=== PATIENT | male | born 2000 | race Caucasian/White ===

== ENCOUNTER 2020-02-06 16:29 | Emergency (ER) | payer MEDICAID, SELFPAY ==
[2020-02-06 16:36] VITALS: BP 147/74; PULSE 110; RESP 16; TEMP 36.6; O2SAT 100
--- NOTE | 2020-02-06 17:05 | ED.DENTAL ---
HPI - Dental/Oral General Chief complaint: Dental/Oral Stated complaint: dental pain, face swollen Time Seen by Provider: 02/06/20 16:44 Source: patient Mode of arrival: ambulatory Limitations: no limitations History of Present Illness HPI Narrative: This is a 19-year-old male that presents the emergency department for toothache x3 days. Reports he thinks he has a wisdom tooth coming in. Reports swelling to the area and pain. Reports he does not currently have a dentist. Denies fever, dysphagia, or dyspnea. MD Complaint: tooth pain Location: Tooth # (32) Related Data Allergies Allergy/AdvReac Type Severity Reaction Status Date / Time No Known Allergies Allergy Verified 02/06/20 17:11 Review of Systems Review of Systems: Narrative: CONSTITUTIONAL: Denies fever ENT: Reports dentalgia All systems reviewed & are unremarkable except as noted in HPI and below PMFSH Past Medical History Medical History (Updated 02/06/20 @ 17:10 by María Lund PA-C) No active medical problems Social History Social History (Updated 02/06/20 @ 17:06 by María Lund PA-C) Smoking status: Current every day smoker Exam Narrative: Exam Narrative: GENERAL: Well-appearing, well-nourished, and in no acute distress. HEAD: Normocephalic, atraumatic. EYES: EOMI. ENT: Mucous membranes moist. Oropharynx without tonsillar hypertrophy exudate or other lesions. Tooth #32 is erupting with mild surrounding edema, no erythema or fluctuance to suggest abscess NECK: Supple. No adenopathy or masses. CHEST: Airway patent EXTREMITIES: Normal range of motion. No edema. SKIN: Warm, dry, no rash. NEURO: No focal deficits. Alert and oriented x3. PSYCH: Normal mood and affect Course Vital Signs Vital signs: Vital Signs Temperature 97.8 F 02/06/20 16:36 Pulse Rate 110 H 02/06/20 16:36 Respiratory Rate 16 02/06/20 16:36 Blood Pressure 147/74 H 02/06/20 16:36 Pulse Oximetry 100 02/06/20 16:36 Temperature 97.8 F 02/06/20 16:36 Pulse Rate 110 H 02/06/20 16:36 Respiratory Rate 16 02/06/20 16:36 Blood Pressure 147/74 H 02/06/20 16:36 Pulse Oximetry 100 11/18/20 16:36 MDM - Dental/Oral MDM Narrative Medical decision making narrative: Patient presents to the emergency department for toothache x3 days. He is afebrile and nontoxic-appearing. Tooth #32 is erupting with mild surrounding swelling. No erythema or fluctuance to suggest abscess. Patient will be started on oral antibiotics and was instructed to follow-up with the dentist. He was given warnings to return to the ER Critical Care Time Critical Care Time Critical Care Time: No Discharge Plan Discharge Clinical Impression: Toothache Patient Disposition: Home, Self-Care Condition: Stable Instructions: Antibiotic Form, Toothache (ED) Additional Instructions: Return to the Emergency Department if you experience fever >101, increasing swelling and redness of your tooth, or any other symptoms that are concerning to you Take antibiotic as prescribed. Tylenol or Ibuprofen as needed for pain. You can apply a dab of clove oil to a Qtip and apply to the tooth to help numb the area Follow up with a dentist. Dr. Jesus Bush at [facility] Prescriptions: New amoxicillin-pot clavulanate [Augmentin] 875-125 mg tablet 1 tablet PO Q12H 7 Days Qty: 14 RF: 0 Follow-up/Referrals: PHYSICIAN,WATER HAULER [Primary Care Provider] -
[2020-02-06 17:33] VITALS: BP 138/80; PULSE 98; RESP 17; O2SAT 98
== END 2020-02-06 17:35 | disposition home or self-care (01) ==
PROVIDERS: Emergency Provider Emergency Medicine
DX: K08.89 Other specified disorders of teeth and supporting structures (principal)
CPT/HCPCS: 99283

== ENCOUNTER 2020-06-13 17:27 | Emergency (ER) | payer OTHER, SELFPAY ==
--- NOTE | ~2020-06-13 | CT_ITS ---
EXAMINATION: CT abdomen pelvis w con EXAM DATE: 06/13/2020 18:27 INDICATION: Right lower quadrant pain. TECHNIQUE: Spiral CT of the abdomen and pelvis was performed following intravenous injection of 100 m L Omnipaque 350. Axial, coronal and sagittal images were reviewed. The dose-length product (DLP) fo r this examination was 862.04 mGy-cm. The exposure was tailored according to patient size (auto mA e xposure control), and iterative reconstruction (ASIR) was used as additional dose reduction technique . There is no prior study for comparison. FINDINGS: The liver, spleen, adrenal glands and pancreas are unremarkable. Gallbladder is unremarkab le. No biliary obstruction. Portal and splenic veins are patent. Kidneys enhance symmetrically. T here is no hydronephrosis. The prostate is unremarkable. The bladder is unremarkable. There is no retroperitoneal or pelvic lymphadenopathy. Small umbilical fat-containing hernia. 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 There are several pericecal lymph node s measuring up to about 1 cm in size, could be mesenteric adenitis. The stomach and small bowel are unremarkable. There is expected amount of colonic stool. No free intraperitoneal gas. The heart is normal in size. There are no pericardial or pleural effusions. The lung bases are unremarkable. There is bilateral L5 spondylolysis with some reparative response, appears subacute. No spondylolisth esis. There is L2 limbus vertebral body. There are no osteoblastic or osteolytic lesions identified. IMPRESSION: 1. Possible mesenteric adenitis. 2. Congenitally large but otherwise unremarkable appendix. 3. 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 Reviewed, dictated and finalized at location A.
[2020-06-13 17:30] VITALS: BP 165/88; PULSE 109; RESP 16; O2SAT 100
--- NOTE | 2020-06-13 17:40 | ED.GENADULT ---
HPI - General Adult General Chief complaint: Nausea/Vomiting/Diarrhea <Yon Gabriel DO - Last Filed: 06/13/20 18:58> Stated complaint: n/v/d <Yon Gabriel DO - Last Filed: 06/13/20 18:58> Time Seen by Provider: 06/13/20 17:29 <Yon Gabriel DO - Last Filed: 06/13/20 18:58> History of Present Illness HPI narrative: Patient presents emergency room from home for nausea vomiting diarrhea. Patient states began 2 days ago with numerous episodes of nausea vomiting diarrhea states associated with right-sided abdominal pain described as aching denies any fevers or chills chest pain shortness breath any other symptoms states he took no pain medication today <Yon Gabriel DO - Last Filed: 06/13/20 18:58> Related Data Home medications: Home Medications Medication Instructions Recorded Confirmed albuterol mcg INHALATION 06/13/20 <Yon Gabriel DO - Last Filed: 06/13/20 18:58> Allergies/adverse reactions: Allergies Allergy/AdvReac Type Severity Reaction Status Date / Time No Known Allergies Allergy Verified 06/13/20 17:33 <Yon Gabriel DO - Last Filed: 06/13/20 18:58> Review of Systems Review of Systems: Narrative: Gen.: Denies fevers or chills ENT: Denies congestion Respiratory: Denies shortness of breath or cough CV: Denies chest pain or palpitations GI: See HPI denies burning, urgency, frequency or hematuria Musculoskeletal: Denies back pain or muscle pain Neuro: Denies numbness, tingling, weakness or focal weakness Skin: Denies rash Except as documented, all other systems reviewed and negative <DO Lacho Kaufman Last Filed: 06/13/20 18:58> PMFSH Past Medical History Medical History: Medical History No active medical problems <Yon Gabriel DO - Last Filed: 06/13/20 18:58> Social History Social History: Social History Smoking status: Current every day smoker <Yon Gabriel DO - Last Filed: 06/13/20 18:58> Exam Narrative: Exam Narrative: APPEARANCE: No acute distress, nontoxic, resting in bed HEENT: Normocephalic, atraumatic, OMM RESPIRATORY: No respiratory distress, clear to auscultation bilaterally with no rhonchi wheezing or rales CARDIOVASCULAR: RRR s murmur ABDOMINAL: Soft nondistended tender palpation right upper quadrant right lower quadrant no tenderness lateral quadrant left lower quadrant no rebound or guarding MUSCULOSKELETAl: Moves all extremities. No clubbing, cyanosis or edema. NEURO: Awake and alert. Following commands, speech normal, no focal deficits SKIN:: Warm, dry. Normal Color PSYCHIATRIC: Normal affect/mood <DO Lacho Kaufman Last Filed: 06/13/20 18:58> Course Course Emergency Course: Patient still noting nausea will give additional medication at this time Care turned over Dr. Parada at shift change awaiting reevaluation and disposition <DO Lacho Kaufman Last Filed: 06/13/20 18:58> Vital Signs Vital signs: Vital Signs Pulse Rate 109 H 06/13/20 17:30 Respiratory Rate 16 06/13/20 17:30 Blood Pressure 165/88 H 06/13/20 17:30 Pulse Oximetry 100 06/13/20 17:30 Temperature 37.0 C 06/13/20 18:04 Pulse Rate 61 06/13/20 20:21 Respiratory Rate 18 06/13/20 20:21 Blood Pressure 119/61 06/13/20 20:21 Pulse Oximetry 99 06/13/20 20:21 <DO Lacho Kaufman Last Filed: 06/13/20 18:58> Vital Signs Pulse Rate 109 H 06/13/20 17:30 Respiratory Rate 16 06/13/20 17:30 Blood Pressure 165/88 H 06/13/20 17:30 Pulse Oximetry 100 06/13/20 17:30 Temperature 37.0 C 06/13/20 18:04 Pulse Rate 61 06/13/20 20:21 Respiratory Rate 18 06/13/20 20:21 Blood Pressure 119/61 06/13/20 20:21 Pulse Oximetry 99 06/13/20 20:21 <Khadar Parada MD - Last Filed: 06/13/20 20:25> Medical Decision
[2020-06-13] MEDS: SODIUM CHLORIDE 0.9% IV 1,000 ML 999 ML IV CONT ×2 (17:44→18:15)
[2020-06-13] MEDS: ONDANSETRON INJ 4 MG/2 ML VIAL IV PUSH (17:45)
[2020-06-13] MEDS: KETOROLAC 30 MG/ML VIAL (*BKC) IV PUSH (17:45)
[2020-06-13 17:51] LABS: Basophils Percent Auto 0.2 % (0.2-1.2); Eosinophils Absolute Auto 0.1 K/mm3 (0-0.3); Eosinophils Percent Auto 1.1 % (0-4.4); Hematocrit 45.4 % (42.0-52.0); Hemoglobin 15.7 g/dL (14.0-18.0); Immature Granulocyte Absolute 0.01 K/mm3 (0.00-0.031); Immature Granulocyte Percent A 0.2 % (0-0.5); Lymphocytes Absolute Auto 2.28 K/mm3 (0.9-3.2); Lymphocytes Percent Auto 40.6 % (18.3-44.2); Mean Corpuscular HGB Conc 34.6 g/dl (32-36); Mean Corpuscular Hemoglobin 31.3 pg (26-34); Mean Corpuscular Volume 90.6 fl (80-100); Monocytes Absolute Auto 0.4 K/mm3 (0.1-0.6); Monocytes Percent Auto 7.5 % (2.6-8.5); Neutrophils Absolute Auto 2.8 K/mm3 (1.3-6.7); Neutrophils Percent Auto 50.4 % (45.5-73.1); Platelet Count Result 243 k/mm3 (150-375); Red Blood Count 5.01 M/mm3 (4.6-6.20); Red Cell Distribution Width 12.4 % (11.5-14.5); White Blood Count 5.6 K/mm3 (4.5-10.0)
[2020-06-13 17:54] LABS: Add Urine Microscopic? YES; Appearance Urine Clear (Clear); Bilirubin Urine Negative (Negative); Blood Urine Negative (Negative); Color Urine Yellow (Yellow); Glucose Urine UA Negative (Negative); Ketones Urine Negative (Negative); Leukocyte Esterase Ur Negative LEU/UL (Negative); Nitrate Urine Negative (Negative); Protein Urine 1+ mg/dL (Negative); RBC Urine 0-2 /hpf (0-2); Specific Grav Ur 1.016 (1.001-1.035); Urobilinogen Urine Negative mg/dL (<2.0); WBC Urine 0-3 /hpf
[2020-06-13 18:03] LABS: Alanine Aminotransferase 85 U/L (4-50); Albumin Level 4.6 g/dL (3.5-5.1); Alkaline Phosphatase 66 U/L (38-126); Anion Gap 7 mmol/L (8-16); Aspartate Amino Transferase 65 U/L (17-59); Bilirubin,Total 0.6 mg/dL (0.2-1.3); Blood Urea Nitrogen 11 mg/dL (9-20); Calcium 9.3 mg/dL (8.4-10.2); Carbon Dioxide 33 mmol/L (22-30); Chloride 102 mmol/L (98-107); Estimated CRCL calculation 139 ml/min; Estimated Glomerular Filt Rate > 60; Glucose 75 mg/dL (75-110); Lipase 78 U/L (23-300); Potassium 3.6 mmol/L (3.4-5.0); Sodium 142 mmol/L (137-145)
[2020-06-13 18:04] VITALS: TEMP 37
[2020-06-13] MEDS: FAMOTIDINE 20 MG/2 ML VIAL IV PUSH (18:15)
[2020-06-13 18:50] VITALS: BP 121/62; PULSE 74; RESP 12; O2SAT 99
[2020-06-13] MEDS: PROMETHAZINE HCL 25 MG/ML AMPUL 12.5 MG IV PUSH (19:01)
[2020-06-13 20:21] VITALS: BP 119/61; PULSE 61; RESP 18; O2SAT 99
== END 2020-06-13 21:07 | disposition home or self-care (01) ==
PROVIDERS: Emergency Medicine; Emergency Provider Emergency Medicine
DX: R11.2 Nausea with vomiting, unspecified (principal); R19.7 Diarrhea, unspecified; R10.9 Unspecified abdominal pain; I88.0 Nonspecific mesenteric lymphadenitis; F17.200 Nicotine dependence, unspecified, uncomplicated
CPT/HCPCS: 36415; 74177; 80053; 81001; 83690; 85025; 96361; 96374; 96375; 99284; J1885; J2405; J2550; J7030; Q9967